=== PATIENT | male | born 1975 | race Caucasian/White ===

== ENCOUNTER 2020-05-17 02:43 | Emergency (ER) | payer OTHER, SELFPAY ==
[2020-05-17 02:44] VITALS: BP 171/117; PULSE 69; RESP 22; O2SAT 100; BMI 28.5
--- NOTE | 2020-05-17 02:48 | CTR_ITS ---
PROCEDURE INFORMATION: Exam: CT Abdomen And Pelvis With Contrast Exam date and time: 05/17/2020 3:04 AM Age: 45 years old Clinical indication: Abdominal pain; Localized; Right upper quadrant (ruq); Additional info: Ruq pain TECHNIQUE: Imaging protocol: Computed tomography of the abdomen and pelvis with intravenous contrast. Radiation optimization: All CT scans at this facility use at least one of these dose optimization techniques: automated exposure control; mA and/or kV adjustment per patient size (includes targeted exams where dose is matched to clinical indication); or iterative reconstruction. Contrast material: OMNI 300; Contrast volume: 95 ml; Contrast route: INTRAVENOUS (IV); COMPARISON: No relevant prior studies available. RADIATION DOSE METRICS: Total DLP (mGy-cm): 1345.59 FINDINGS: Lungs: Suspect a 3 mm faintly calcified granuloma in the right middle lobe. Probable mild atelectasis in the lower lungs. No pleural fluid. Liver: Unremarkable. Gallbladder and bile ducts: At least 2 faintly calcified 15 mm gallstones are visible, one in the gallbladder neck. The gallbladder appears borderline to mildly distended, transverse diameter of almost 4 cm. No definite pericholecystic fluid or inflammation. No biliary tree dilation. Pancreas: Unremarkable. Spleen: Unremarkable. Adrenal glands: Unremarkable. Kidneys and ureters: No hydronephrosis of either kidney. No visible ureteral calculus. No perinephric fluid. The kidneys enhance homogeneously. Stomach and bowel: There are no CT findings to strongly suggest diverticulitis. Appendix: The appendix is visualized and appears normal. Intraperitoneal space: No free air, ascites, or bowel distention. Vasculature: No evidence for abdominal aortic aneurysm. Lymph nodes: No retroperitoneal adenopathy. Urinary bladder: Possibly some mild diffuse urinary bladder wall thickening. Evaluation is somewhat limited, as the bladder is not well distended. While nonspecific, this could indicate evidence for cystitis. Please correlate clinically. Reproductive: Essentially unremarkable for age. Bones/joints: No significant acute finding. Soft tissues: Very small umbilical hernia, containing only fat. CT/CT abdomen pelvis w con* [id number] IMPRESSION: 1. Cholelithiasis, see additional details above. 2. No free air or bowel distention. 3. Normal appendix. 4. Possible mild urinary bladder wall thickening, see above. 5. Other findings discussed above. Radiation Dose CTDIVOL = (mGy): DLP = 1345.59 (mGy-cm)
--- NOTE | 2020-05-17 02:48 | ECG_ITS ---
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 Measurements Intervals Marshall Rate: 58 P: 47 ME: 148 QRS: 54 QRSD: 106 T: 58 QT: 415 QTc: 409 Interpretive Statements SINUS BRADYCARDIA No previous ECG available for comparison Electronically Signed On 05-17-2020 21:11:12 NEUROLOGICAL SURGEON by Cesar Aponte M.D. [id number]
--- NOTE | 2020-05-17 02:48 | USR_ITS ---
PROCEDURE INFORMATION: Exam: US Abdomen, Limited; Right Upper Quadrant Exam date and time: 05/17/2020 3:49 AM Age: 45 years old Clinical indication: Abdominal pain; Acute; Additional info: Ruq pain TECHNIQUE: Imaging protocol: US abdomen. Real time ultrasound with image documentation. Limited exam focused on the right upper quadrant. COMPARISON: No relevant prior studies available. FINDINGS: Liver: Unremarkable liver, no focal abnormality. Gallbladder: At least 2 shadowing gallstones visible within the gallbladder, one in the region of the gallbladder neck. These stones measure about 20-25 mm in size. Mild gallbladder wall thickening, measuring up to 4 mm. No definite pericholecystic fluid. Technologist states patient was tender over the gallbladder region during scanning. Common bile duct: No biliary dilation, common duct measures 4.0 mm. Pancreas: Visible pancreas unremarkable. Right kidney: Images of the right kidney show no hydronephrosis. US/US gall bladder [id number] IMPRESSION: 1. Cholelithiasis, see additional details above. 2. No biliary tree dilation. 3. Other findings discussed above.
--- NOTE | 2020-05-17 02:48 | XRR_ITS ---
PROCEDURE INFORMATION: Exam: XR Chest, 1 View Exam date and time: 05/17/2020 3:04 AM Age: 45 years old Clinical indication: Chest pain; Additional info: Cp TECHNIQUE: Imaging protocol: XR of the chest Views: 1 view. COMPARISON: No relevant prior studies available. FINDINGS: Lungs: No CHF/pulmonary edema. Poor inspiration somewhat limits evaluation, especially of the lung bases. Suspect mild atelectasis in the left lower lung. Visible lungs otherwise appear essentially clear. Pleural space: No visible pneumothorax. No definite pleural fluid. Heart/Mediastinum: Heart size is within normal limits. Bones/joints: No significant acute finding. XR/XR chest 1V portable [id number] IMPRESSION: 1. Suspect mild atelectasis in the left lower lung. 2. Other findings discussed above.
[2020-05-17 02:53] VITALS: TEMP 36.6
[2020-05-17] MEDS: sodium chloride 0.9% 1,000 ML 999 ML IV (02:58)
[2020-05-17] MEDS: ketorolac 30 mg/mL INJ IVP (02:58)
[2020-05-17] MEDS: HYDROmorphone 1 mg/mL INJ 1 mL IVP (02:58)
[2020-05-17] MEDS: ondansetron 2 mg/ML SDV 2 mL 4 MG IVP (02:58)
[2020-05-17 02:59] LABS: Basophils # 0.1 10^3/uL (0.0-0.1); Basophils % 0.4 %; Eosinophils # 0.1 10^3/uL (0.0-0.8); Eosinophils % 0.4 %; Hematocrit 46.6 % (42.0-52.0); Hemoglobin 16.3 g/dL (11.7-16.6); Lymphocytes # 1.8 10^3/uL (0.8-4.8); Lymphocytes % 12.6 %; Mean Corpuscular Volume 82.8 fL (80-94); Mean Platelet Volume 9.8 fL (7.4-10.4); Monocytes # 0.4 10^3/uL (0.2-0.9); Neutrophils # 11.66 10^3/uL (1.8-7.7); Neutrophils % 83.2 %; Nucleated Red Blood Cells % 0 %; Platelet Count 257 10^3/cmm (130-400); Red Blood Count 5.63 10^6/uL (4.1-5.3)
--- NOTE | 2020-05-17 03:09 | W.ED.CHESTPA ---
HPI - Chest Pain General: Chief Complaint: Chest Pain Stated Complaint: pain below sternum Time Seen by Provider: 05/17/20 02:45 History of Present Illness: HPI narrative: 45-year-old healthy male presenting with lower chest/epigastric/right upper quadrant pain. He says it started around 10 PM, and gradually got worse. He threw up around 12:30 AM. When his pain did not go away, he presented to the ER. There is no history of fever, cough, or shortness of breath. No history of belly surgeries. MD complaint: chest pain and other Onset (ago): hour(s) Timing of current episode: episodic Prior episodes: No Onset: during rest Pain location: epigastric and other (ruq) Pain radiation: back Quality: sharp Relieving factors: nothing Exacerbating factors: movement Associated symptoms: Reports nausea and vomiting; Deny dyspnea, fever(s), leg edema or palpitations Review of Systems Const: Denies: fever(s) or chills Card: Reports: chest pain; Denies: palpitations, irregular heart rhythm, swelling of feet/ankles or dyspnea on exertion Resp: Denies: dyspnea or non-productive cough GI: Reports: nausea and vomiting Physical Exam Const: GENERAL APPEARANCE: cooperative, well developed, in distress and ill appearing ORIENTATION/CONSCIOUSNESS: Yes oriented to person, Yes oriented to place and Yes oriented to time HENMT: COMMON NORMALS: normocephalic, external ears normal and Normal external nose present HEAD & SCALP: normocephalic FACE & SINUS: normal facial exam NOSE: Normal external nose present and No nasal discharge present EXTERNAL EAR: Yes external ears normal Eye: COMMON NORMALS: Equal, round and reactive pupils present, EOMs intact bilaterally and conjunctivae normal EYELID: eyelids normal CONJUNCTIVA: Yes conjunctivae normal PUPIL: Yes Equal, round and reactive pupils present Neck/C-Spine: GENERAL: No tracheal deviation Chest: COMMONS NORMALS: normal inspection of the chest CHEST: No tenderness Resp: COMMON NORMALS: clear to auscultation bilaterally EFFORT & INSPECTION: No tachypneic, No respiratory distress, No retractions, No uses accessory muscles and No tracheal deviation AUSCULTATION: clear to auscultation bilaterally, no rhonchi, no wheezes and lung sounds not diminished Cardio: COMMON NORMALS: regular rate and regular rhythm RATE: regular rate RHYTHM: regular rhythm HEART SOUNDS: no murmurs PERIPHERAL PULSES: radial pulses present GI: INSPECTION: No abdominal distension AUSCULTATION: No Hyperactive bowel sounds present and No Hypoactive bowel sounds present PALPATION: Yes Tenderness to palpation present (GI) Details: RUQ, Yes Guarding due to palpation present (GI) and No Rigid due to palpation PERCUSSION: no dullness to percussion and no tympanic to percussion Neuro: SENSORIUM/ORIENTATION: Yes oriented to person, Yes oriented to place and Yes oriented to time Psych: COMMON NORMALS: mental status grossly normal Skin: COMMON NORMALS: no rashes or lesions noted GENERAL SKIN EXAM: no rashes or lesions noted Course Vital Signs: Vital signs: Vital Signs Temperature 97.8 F 05/17/20 02:53 Pulse Rate 67 05/17/20 04:40 Respiratory Rate 16 05/17/20 04:40 Blood Pressure 123/78 05/17/20 04:40 Pulse Oximetry 98 05/17/20 04:40 MDM - Chest Pain MDM Narrative: Medical decision making narrative: White blood cell count is 14. Other labs are benign. This includes the first troponin. His EKG shows a sinus bradycardia with no acute ST change. Chest x-ray shows minimal left lower lobe atelectasis. He has no fever. His pain is controlled at this point. No vomiting here. CT scan shows a stone in the neck of the gallbladder, with an additional stone. No definite wall thickening. Ultrasound confirms a stone in the neck of the gallbladder with no findings of cholecystitis or pericholecystic fluid. He will be allowed home for outpatient follow-up. Lab Data: Labs: Lab Results 05/17/20 05/17/20 05/17/20 Range/Units 02:50 02:50 02:50 WBC 14.0 H (4.0-10.0) 10^3/ uL RBC 5.63 H (4.1-5.3) 10^6/u L Hgb 16.3 (11.7-16.6) g/dL Hct 46.6 (42.0-52.0) % MCV 82.8 (80-94) fL MCH 29.0 (28.0-34.0) pg MCHC 35.0 (30.0-36.0) g/dL RDW 12.0 L (12.1-15.1) % Plt Count 257 (130-400) 10^3/c mm MPV 9.8 (7.4-10.4) fL Neut % (Auto) 83.2 % Lymph % (Auto) 12.6 % Wise % (Auto) 3.0 % Eos % (Auto) 0.4 % Baso % (Auto) 0.4 % Neut # (Auto) 11.66 H (1.8-7.7) 10^3/u L Lymph # (Auto) 1.8 (0.8-4.8) 10^3/u L Wise # (Auto) 0.4 (0.2-0.9) 10^3/u L Eos # (Auto) 0.1 (0.0-0.8) 10^3/u L Baso # (Auto) 0.1 (0.0-0.1) 10^3/u L Nucleated RBC % (a uto) 0 % Nucleated RBCs # 0.0 /100WBC Sodium 139 (136-145) mmol/L Potassium 3.6 (3.5-5.1) mmol/L Chloride 101 (98-107) mmol/L Carbon Dioxide 24 (22-29) mmol/L Anion Gap 17.6 (5-19) BUN 24 H (6-20) mg/dL Creatinine 1.1 (0.7-1.2) mg/dL GFR Calculation 73.1 L (90-130) mL/min Glucose 169 H (65-115) mg/dL Calculated Osmolal ity 296 H (285-295) mOsm/k g Calcium 9.9 (8.5-10.5) mg/dL Total Bilirubin 0.5 (0.15-1.2) mg/dL AST 18 (0-40) U/L ALT 21 (0-41) U/L Alkaline Phosphata se 66 (40-130) IU/L Creatine Kinase 91 (39-308) U/L Troponin T Baselin e 7 (0-15) ng/L Total Protein 7.0 (6.6-8.7) g/dL Albumin 4.6 (3.5-5.2) g/dL Globulin 2.4 (1.3-4.6) g/dL Lipase 26 (13-60) U/L Discharge Plan Discharge Patient Disposition: Home Clinical Impression: Biliary colic Condition: Stable Prescriptions: New ondansetron 4 mg film 4 mg PO DAILY PRN (Reason: nausea and vomiting) Qty: 10 RF: 0 Percocet 7.5-325 mg tablet 1 tab PO Q6H PRN (Reason: pain) Qty: 10 RF: 0 Discharge Orders: Discharge Order (Routine); Ordered 05/17/20 Ordered By: Errol Randall Referrals: Seth Girard MD [Physician] - 4-7 days Yoel Malone MD [Primary Care Provider] - Discharge Diet: Advance as tolerated and Clear Liquid Discharge Activity: Increase activity as tolerated Patient Instructions: Biliary Colic (ED) Activity Restrictions/Additional Instructions: Return for return of right upper quadrant pain, vomiting liquids or medications despite treatment, fever greater than 100, other concerning symptoms. Follow-up with surgery as an outpatient. Coding Level of Care Code ED Reception Specialist for Chg Fwd Exam Comprehensive
[2020-05-17 03:19] LABS: Troponin(5th) Baseline 7 ng/L (0-15)
[2020-05-17] MEDS: iohexol 300 mg/mL 100 mL Btl IV (03:26)
[2020-05-17 03:33] LABS: Alanine Aminotransferase 21 U/L (0-41); Albumin Level 4.6 g/dL (3.5-5.2); Alkaline Phosphatase 66 IU/L (40-130); Aspartate Amino Transferase 18 U/L (0-40); Blood Urea Nitrogen 24 mg/dL (6-20); Calcium 9.9 mg/dL (8.5-10.5); Carbon Dioxide 24 mmol/L (22-29); Chloride 101 mmol/L (98-107); Creatine Phosphokinase 91 U/L (39-308); Globulin 2.4 g/dL (1.3-4.6); Glomerular Filtration Rate 73.1 mL/min (90-130); Glucose 169 mg/dL (65-115); Lipase 26 U/L (13-60); Osmolality Calculated 296 mOsm/kg (285-295); Sodium 139 mmol/L (136-145); Total Bilirubin 0.5 mg/dL (0.15-1.2)
[2020-05-17] MEDS: HYDROmorphone 1 mg/mL INJ 1 mL 0.5 MG IVP (03:34)
[2020-05-17 03:45] LABS: Anion Gap 17.6 (5-19); Potassium 3.6 mmol/L (3.5-5.1)
[2020-05-17 04:18] VITALS: BP 132/85; PULSE 78; RESP 16; O2SAT 96
[2020-05-17 04:40] VITALS: BP 123/78; PULSE 67; RESP 16; O2SAT 98
== END 2020-05-17 04:42 | disposition home or self-care (01) ==
PROVIDERS: Emergency Provider Emergency Medicine; PCP Urology
DX: K80.50 Calculus of bile duct without cholangitis or cholecystitis without obstruction (principal)
CPT/HCPCS: 12345; 71045; 74177; 76705; 80053; 82550; 83690; 84484; 85025; 93005; 96361; 96374; 96375; 99282; 99284; J1170; J1885; J2405; J7030; Q9967

== ENCOUNTER → 2020-06-13 10:01 | Outpatient (BNVA) | payer OTHER, SELFPAY | PROVIDERS: PCP Urology; Visit Provider Surgery | DX: Z11.59 Encounter for screening for other viral diseases (principal); Z01.812 Encounter for preprocedural laboratory examination | CPT/HCPCS: 87635 ==

== ENCOUNTER 2020-06-18 07:44 | Day surgery (SDC) | payer OTHER, SELFPAY ==
[2020-06-17 10:50] VITALS: BMI 29.8
[2020-06-18] VITALS (7 sets, daily range): BP systolic 133–148; BP diastolic 81–97; PULSE 64–99; RESP 17–19; TEMP 36.1–36.9; O2SAT 94–98
[2020-06-18] MEDS: sodium chloride 0.9% 1,000 ML 30 ML IV (08:16)
--- NOTE | 2020-06-18 08:36 | ANES.PREANE2 ---
Pre-Anesthetic Assessment Pre-Anesthetic Assessment: Height/Weight: Height 1.83 m Weight 99.79 kg Temp Pulse Resp BP Pulse Ox 98.4 F 64 18 133/85 98 06/18/20 07:59 06/18/20 07:59 06/18/20 07:59 06/18/20 07:59 06/18/20 07:59 Proposed Procedure: Operation Date: 06/18/20 09:15 Proposed Procedures p Laparoscopic Cholecystectomy(Not Applicable) - Emerson Kirby MD Was Beta Nicholas taken within 24 hours: N/A Last intake: Intake Last Liquid Date 06/17/20 Last Liquid Time 19:30 Last Solid Date 06/17/20 Last Solid Time 19:30 Social: Social History: No alcohol and No tobacco Exam: Pre-Anes Outpt Exam: alert, oriented x 3, clear to auscultation bilaterally and regular rate & rhythm Airway: Submandibular: WNL Cervical ROM: WNL MP: 2 History/ROS: No significant history except as noted Pulmonary: Pulmonary: None reported CV/HEM: CV/HEM: None reported : : None reported Hepatic: Hepatic: None reported GI: Comments: Documented cholelithiasis Metabolic: Metabolic: None reported Musc/skel: Musc/skel: None reported Neuropsych: Neuropsych: None reported Anesthetic Plan: ASA status: 2 Anesthesia: General Meds/Allergies Current Medications: Current Medications Generic Name Dose Route Start Last Admin Trade Name Freq PRN Reason Stop Dose Admin Sodium Chloride 1,000 mls @ 30 ml s/hr 06/18/20 08:00 06/18/20 08:16 Sodium Chloride 0.9% IV 06/19/20 07:59 30 mls/hr .Q24H YUNG Administration Data Anesthesia Cardiac Studies: No Data to Display
--- NOTE | 2020-06-18 09:05 | W.PM.OPSUD ---
Surgery/Procedure H&P Update DATE OF PROCEDURE: June 18, 2020 DATE H&P PERFORMED: 05/26/20 H&P UPDATE INFORMATION: No changes to prior documentation PLANNED PROCEDURE: Operation Date: 06/18/20 09:15 Proposed Procedures p Laparoscopic Cholecystectomy(Not Applicable) - Emerson Kirby MD
[2020-06-18 09:19] LABS: Alanine Aminotransferase 16 U/L (0-41); Albumin Level 4.2 g/dL (3.5-5.2); Alkaline Phosphatase 69 IU/L (40-130); Aspartate Amino Transferase 14 U/L (0-40); Globulin 2.9 g/dL (1.3-4.6); Total Bilirubin 0.8 mg/dL (0.15-1.2); Total Protein 7.1 g/dL (6.6-8.7)
--- NOTE | 2020-06-18 10:18 | PM.OP ---
Operative Report Date of procedure: June 18, 2020 Pre-op Diagnosis: Symptomatic cholelithiasis. Post-op diagnosis: same Procedure Done: Laparoscopic cholecystectomy. Specimens removed/disposition: Gallbladder. Surgeon: Emerson Kirby Anesthesia: General Estimated blood loss (mL): 10 Complications: None. Condition: stable Disposition: PACU Procedure: The patient was brought to the Operating Room and was placed in a supine position on the Operating Room table. General endotracheal anesthesia was induced. The abdomen was prepped and draped in a sterile fashion. A small vertical incision was carried out in the inferior aspect of the umbilicus. Blunt dissection was carried out down to the fascia, which was grasped with a Nithya clamp. A stay suture of 0 Vicryl was placed on either side of the midline and the midline fascia was incised. The underlying peritoneum was opened bluntly and the Mandi port was placed directly into the peritoneal cavity and was held in place with the inflatable balloon. The peritoneal cavity was insufflated with carbon dioxide. The laparoscope was used to inspect the abdominal cavity. The patient had some light adhesions on the right side of the abdomen affecting the ascending colon. These were eventually taken down. No other gross abnormalities were initially noted. A 5 millimeter port was placed in the epigastrium under direct vision. Two 5-millimeter ports were placed on the right side of the abdomen under direct vision. The gallbladder was grasped and was elevated. At this point it could be seen that the patient had adhesions all the way along the fundus of the gallbladder down to and involving the infundibulum. These were taken down using blunt dissection with some cautery to maintain hemostasis. Blunt dissection and hydrodissection were carried out in the infundibular region of the gallbladder and the cystic duct and cystic artery were identified. The gallbladder was partially removed from the liver bed using cautery and the spatula to confirm the anatomy before the structures were clipped and divided. The gallbladder was then removed from the liver bed using cautery and the spatula. The patient had rather extensive changes of chronic inflammation in the plane between the gallbladder and the liver bed. At one point a small hole was inadvertently made in the gallbladder during the dissection and some fairly clear fluid was suctioned out. After the gallbladder had been removed from the liver bed, the laparoscope was moved to the epigastric port and the gallbladder was removed from the peritoneal cavity through the umbilical port site after being placed in a laparoscopic bag. The fascial opening at the umbilicus had to be elongated slightly to allow passage of the gallbladder with a sizable stone in its lumen. The stay sutures of Vicryl were tied to each other at the umbilicus. An additional [id number] suture was placed, closing the defect so that it was airtight. The perihepatic spaces were irrigated with saline and the liver bed was reinspected. No ongoing problems were seen. The remaining ports were removed from the abdominal wall and the pneumoperitoneum was evacuated. All skin incisions were closed using inverted interrupted sutures of 4-0 Vicryl. Benzoin and Steri-Strips were placed over the incisions and Band-Aids followed. The patient was taken to the Recovery Area in stable condition postoperatively.
--- NOTE | 2020-06-18 10:38 | SUR.PHASEI ---
PT AWAKE ALERT VSS PT DENIES PAIN IS TEARFUL, BUT UNABLE TO SAY WHY, ABD SOFT WITH 4 SITES D/I
[2020-06-18] MEDS: HYDROcodone-acetaminophen 5-325 mg Tablet 1 TAB PO (11:23)
--- NOTE | 2020-06-18 16:37 | ANE.PACU2 ---
Inpatient post-anesthesia follow up: Airway intact: Yes Vital signs: Temperature 97 F Pulse Rate 70 Respiratory Rate 18 Blood Pressure 140/95 Pulse Oximetry 98 Oxygen Delivery Me thod Room Air Oxygen Flow Rate 8 Fraction of Inspir ed Oxygen Hydration adequate: Yes Nausea and vomiting: No Pain level: 3 Mental status: Baseline
== END 2020-06-18 11:35 | disposition home or self-care (01) ==
PROVIDERS: Visit Provider Surgery
PROC: 0FT44ZZ Resection of Gallbladder, Percutaneous Endoscopic Approach (ICD-10-PCS; CPT 47562; principal; 2020-06-18 09:15)
DX: K80.10 Calculus of gallbladder with chronic cholecystitis without obstruction (principal)
CPT/HCPCS: 47562; 12345; 36415; 80076; 88304; J0690; J1100; J1885; J2405; J2704; J3010; J3490; J7030

== ENCOUNTER 2022-03-29 12:30 | Outpatient (CLI) | payer OTHER, SELFPAY | END 2022-03-29 12:31 | disposition home or self-care (01) | LOC: SLEEP 03-30 08:50 | PROVIDERS: Visit Provider Internal Medicine | DX: G47.10 Hypersomnia, unspecified (principal); G47.33 Obstructive sleep apnea (adult) (pediatric) | CPT/HCPCS: G0399 ==